=== PATIENT | female | born 1995 | race Caucasian/White ===

== ENCOUNTER → 2020-02-26 | Outpatient (CLI) | payer OTHER ==
--- NOTE | 2020-02-26 17:24 | REP ---
Clinical: Twin gestation. Comparison: None . Findings: Examination demonstrates diamniotic dichorionic twin gestation. Cervix measures 3.7 cm in length and appears closed. Concordant growth is noted. Gestational age by LMP at 20 weeks 3 days with estimated date of delivery 07/12/2020. TWIN A: Twin A identified in variable presentation along the maternal midline / right side. Placenta is noted anterior and grade I without evidence for placenta previa or abruption. motion is appreciated. Amniotic fluid volume is normal and the deepest pocket measures 3.6 cm. FHR equals 160 beats per minute. BPD 5.1 cm 21 weeks 2 days HC 18.1 cm 20 weeks 4 days AC 16.1 cm 21 weeks 1 day FL 3.4 cm 20 weeks 4 days HL 3.2 cm 20 weeks 6 days HC/AC ratio 1.13 Gestational age by current measurements: 20 weeks 6 days . Estimated weight 384 grams ( 63rd percentile). Anatomical assessment demonstrates normal cranium, cord plexus, posterior fossa, facial features, lungs, heart/ventricular outflow tracts, diaphragm, stomach, cord insertion, three-vessel cord, kidneys/bladder, and extremities. Limited evaluation of the spine noted. ------- TWIN B: Twin B identified in variable presentation along the maternal left side. Placenta is noted anterior and grade I without evidence for placenta previa or abruption. motion is appreciated. Amniotic fluid volume is normal and the deepest pocket measures 2.8 cm. FHR equals 143 beats per minute. BPD 5.1 cm 21 weeks 4 days HC 18.7 cm 21 weeks 0 days AC 17.5 cm 22 weeks 3 days FL 3.4 cm 20 weeks 3 days HL 2.9 cm 19 weeks 3 days HC/AC ratio 1.07 Gestational age by current measurements: 21 weeks 0 days . Estimated weight 428 grams ( 86 percentile). Anatomical assessment demonstrates normal cranium, cord plexus, posterior fossa, facial features, lungs, diaphragm, stomach, cord insertion, three-vessel cord, kidneys/bladder, spine and extremities. Limited evaluation of the heart/cardiac ventricular outflow tracts. Impression: Diamniotic dichorionic twin gestation demonstrating appropriate concordant growth. No gross abnormalities are identified. Anatomical limitations as noted above. Electronically Signed by Albaro Langley MD 02/26/2020 05:16 P
== END ==
LOC: M RAD 14:24
PROVIDERS: ATTEND Obstetrics & Gynecology
DX: O30.042 Twin pregnancy, dichorionic/diamniotic, second trimester (principal); Z3A.20 20 weeks gestation of pregnancy

== ENCOUNTER 2020-04-09 16:10 | Emergency (ER) | payer OTHER ==
[~2020-04-09] VITALS: Ht 152.4 cm; Wt 135.4 kg
[2020-04-09] MEDS ORDERED: FAMO1TAB25 PO (16:15)
[2020-04-09] MEDS ORDERED: PREN29TA4 PO (16:15)
[2020-04-09] MEDS ORDERED: ASPI81TA85 PO (16:15)
[2020-04-09] MEDS ORDERED: FOLI400T PO (16:15)
[2020-04-09 17:34] LABS: HEMATOCRIT 31.8 % (36.0-47.0); HEMOGLOBIN 10.7 g/dl (12.0-15.5); LYMPH % 15.6 % (24.0-44.0); MEAN CORPUSCULAR HEMOGLOBIN 31.5 pg (27.0-33.0); MEAN CORPUSCULAR HGB CONC 33.6 g/dl (32.0-36.5); MEAN CORPUSCULAR VOLUME 93.5 fl (80.0-96.0); NEUTROPHILS % 76.1 % (36.0-66.0); PLATELET COUNT, AUTOMATED 356 10^3/uL (150-450); WHITE BLOOD COUNT 12.9 10^3/uL (4.0-10.0)
[2020-04-09 17:35] LABS: BASO % 0.3 % (0.0-1.0); EOS # 0.1 10^3/uL (0.0-0.5); EOS % 0.7 % (0.0-3.0); MONO # 0.7 10^3/uL (0.0-0.8); MONO % 5.3 % (0.0-5.0); NEUTROPHILS # 9.8 10^3/uL (1.5-8.5)
[2020-04-09 18:11] LABS: ALBUMIN 2.3 GM/DL (3.2-5.2); ALT/SGPT 42 U/L (12-78); BILIRUBIN,DIRECT 0.1 MG/DL (0.0-0.2); BILIRUBIN,TOTAL 0.3 MG/DL (0.2-1.0); BLOOD UREA NITROGEN 5 MG/DL (7-18); CALCIUM LEVEL 8.3 MG/DL (8.5-10.1); CARBON DIOXIDE LEVEL 25 MEQ/L (21-32); CHLORIDE LEVEL 109 MEQ/L (98-107); CREATININE FOR GFR 0.68 MG/DL (0.55-1.30); GLOMERULAR FILTRATION RATE > 60.0 (>60); GLUCOSE, FASTING 92 MG/DL (70-100); LIPASE 82 U/L (73-393); POTASSIUM SERUM 3.6 MEQ/L (3.5-5.1); SODIUM LEVEL 141 MEQ/L (136-145); TOTAL PROTEIN 6.5 GM/DL (6.4-8.2)
--- NOTE | 2020-04-09 19:00 | REPVR ---
PROCEDURE INFORMATION: Exam: US Biophysical Profile Without Non-Stress Test Exam date and time: 04/09/2020 6:37 PM Age: 24 years old Clinical indication: Injury or trauma; Fall; Injury indication: Cramping; ; Additional info: Trauma twins TECHNIQUE: Imaging protocol: US biophysical profile without non-stress testing. COMPARISON: US OBS SINGEL GEST 02/26/2020 2:46 PM FINDINGS: Gestation: Single fetus. Heart rate: heart rate 133 bpm. Placenta: Anterior placenta without placenta previa. BIOPHYSICAL PROFILE: Breathin/2 Gross body movements: 2/2 tone: 2/2 Qualitative amniotic fluid: 2/2 Biophysical Profile Score: 8/8 MATERNAL ANATOMY: Cervix: Cervical length 4.7 cm. IMPRESSION: Biophysical profile 6/8 with 2 points deducted absent breathing during the examination. Electronically signed by: Varun Agrawal On 04/09/2020 18:59:56 PM
[2020-04-09 19:07] VITALS: BP 136/72
== END 2020-04-09 19:30 | disposition admitted as inpatient to this hospital (09) ==
LOC: M ED 16:10
DX: O9A.212 Injury, poisoning and certain other consequences of external causes complicating pregnancy, second trimester (principal); S30.1XXA Contusion of abdominal wall, initial encounter; W01.198A Fall on same level from slipping, tripping and stumbling with subsequent striking against other object, initial encounter; Y92.091 Bathroom in other non-institutional residence as the place of occurrence of the external cause; Y93.E1 Activity, personal bathing and showering; O30.042 Twin pregnancy, dichorionic/diamniotic, second trimester; O24.410 Gestational diabetes mellitus in pregnancy, diet controlled; O99.612 Diseases of the digestive system complicating pregnancy, second trimester; K21.9 Gastro-esophageal reflux disease without esophagitis; Z3A.28 28 weeks gestation of pregnancy

== ENCOUNTER 2020-04-09 19:27 | Outpatient (CLI) | payer OTHER ==
[~2020-04-09 19:27] MED LIST: ASPI81TA85 PO; FAMO1TAB25 PO; FOLI400T PO; PREN29TA4 PO
--- NOTE | 2020-04-09 21:19 | IPNPDOC ---
Text Note Date of Service The patient was seen on 04/09/20. NOTE Patient is 24yo at 27wks. At around 1500, patient slipped and fell while getting out of shower. No LOC. Hit the right side of abdomen. Abdomen was painful at fall site upon presentation to ER, but now is mildly sore. No contractions. No loss of fluid or bleeding. Good movement. PE: VS WNL GEN NAD, Comfortable FHT: Category 1, 140s/150s, reactive, no decels. contraction irritability upon presentation which resolved. ER: CBC and KB normal. US/BPP normal for gestational age. A/P: Fetuses reassuring. Patient not in labor and no rupture of membranes. No evidence of placental abruption. Patient given labor precautions, rupture of membranes precautions and kick counts. She has a follow up appt next week. Christine Harris MD Apr 09, 2020 21:19
== END 2020-04-09 21:15 | disposition home or self-care (01) ==
LOC: M LDO 19:27
PROVIDERS: ATTEND Obstetrics & Gynecology
DX: O99.89 Other specified diseases and conditions complicating pregnancy, childbirth and the puerperium (principal); Z3A.27 27 weeks gestation of pregnancy; W18.2XXA Fall in (into) shower or empty bathtub, initial encounter
CPT/HCPCS: G0378; G0463

== ENCOUNTER → 2020-05-26 | Outpatient (CLI) | payer OTHER | LOC: M LDO 22:55 | PROVIDERS: ATTEND Obstetrics & Gynecology | DX: Z34.90 Encounter for supervision of normal pregnancy, unspecified, unspecified trimester (principal) | CPT/HCPCS: 96372; G0378 ==

== ENCOUNTER → 2020-05-26 | Outpatient (CLI) | payer OTHER ==
[~2020-05-26] MED LIST changes: -ASPI81TA85 PO; +ASPI81TA86 PO; +BETAMETHASONE SOLUSPAN 6MG/ML 5ML VIAL (J0702 PER 3MG) As Ordered ONE
== END ==
LOC: M LDO 21:44
PROVIDERS: ATTEND Obstetrics & Gynecology
DX: O30.043 Twin pregnancy, dichorionic/diamniotic, third trimester (principal); Z3A.33 33 weeks gestation of pregnancy
CPT/HCPCS: 59025; 82731; 87081; 96372; G0378; G0463; J0702

== ENCOUNTER → 2020-05-30 | Outpatient (CLI) | payer OTHER ==
[~2020-05-30] MED LIST changes: +ACETAMINOPHEN 500 MG TAB As Ordered ONE; +AZITHROMYCIN INJ 500MG VIAL (J0456 PER 500MG) As Ordered ONE; -BETAMETHASONE SOLUSPAN 6MG/ML 5ML VIAL (J0702 PER 3MG) As Ordered ONE; +BICITRA 30ML SOLN UDC As Ordered ONE; +DOCUSATE SODIUM 100 MG CAP As Ordered ONE; +HYDROmorphone (DILAUDID) 4 MG TAB As Ordered ONE; +TERBUTALINE SULFATE 1 MG/ML VIAL (J3105) As Ordered ONE; +ceFAZolin 1GM VIAL (J0690 PER 500MG) As Ordered ONE; +ceFAZolin 2 GM/D5W 50 ML IV BAG (J0690 PER 500MG) As Ordered ONE
== END ==
LOC: M LDO 12:31
PROVIDERS: ATTEND Obstetrics & Gynecology
DX: O30.043 Twin pregnancy, dichorionic/diamniotic, third trimester (principal); O47.03 False labor before 37 completed weeks of gestation, third trimester; O24.415 Gestational diabetes mellitus in pregnancy, controlled by oral hypoglycemic drugs; Z3A.34 34 weeks gestation of pregnancy
CPT/HCPCS: 59025; 76815; 86780; 96374; G0378; G0463